=== PATIENT | female | born 1970 | race Caucasian/White ===

== ENCOUNTER 2020-08-22 10:29 | Day surgery (SDC) | payer MEDICAID ==
[~2020-08-22] VITALS: Ht 154.9 cm; Wt 116.4 kg
--- NOTE | ~2020-08-22 | OP ---
PATIENT NAME: DIPTI WILLSON MEDICAL RECORD: [id number] :66 [facility] DATE: SURGEON: PAWAN PETERSEN DO DATE OF OPERATION: 08/22/2020 PROCEDURE: EGD with balloon dilation and biopsies. INDICATIONS FOR PROCEDURE: Dysphagia, epigastric pain. SCOPE: Olympus video gastroscope. MEDICATIONS: Propofol 250 mg IV per anesthesia. ESTIMATED BLOOD LOSS: Minimal. COMPLICATIONS: None. FINDINGS: Informed consent was given. The patient was made comfortable with the above medication. After reaching an adequate level of sedation by slow IV push, the patient was placed on her left side. The endoscope was advanced under direct visualization through the mouth to the second portion of the duodenum. The esophagus appeared normal down to the GE junction. Cold forceps biopsies were taken from the mid esophagus to rule out the presence of eosinophils due to the patient's dysphagia. At the GE junction, there was evidence of LA class A reflux-induced esophagitis and some mild esophageal stenosis. A CRE dilating balloon was placed through the endoscope channel and the distal esophagus and GE junction was dilated to 20 mm maximum diameter successfully. The endoscope was then advanced beyond the GE junction into the stomach and retroflexed to view the cardia and fundus, which appeared normal. Throughout the stomach, there were patchy areas of erythema and granularity consistent with mild chronic gastritis changes. Cold forceps biopsies were taken from the antrum and incisura to submit for histopathology and to rule out the presence of H. pylori. The endoscope was advanced beyond the pylorus into the duodenum which appeared normal to the second portion. The endoscope was then withdrawn from the patient. The patient tolerated the procedure well and there were no complications. IMPRESSION: 1. LA class A reflux-induced esophagitis. 2. Mild esophageal stenosis at the GE junction, status post dilation to 20 mm. 3. Mild chronic gastritis changes. PLAN AND RECOMMENDATIONS: 1. Discharge home when recovery parameters are met. 2. Follow up biopsy specimen results. 3. GERD diet and reflux precautions. 4. Continue current medications. 5. Start omeprazole 40 mg daily times 60 days. 6. Follow up in GI clinic in 6-8 weeks. 7. If dysphagia continues, may need to consider manometry. 8. Notify GI clinic if symptoms worsen or fail to improve within the next few weeks. TRANSINT:[id number] Voice Confirmation ID: [id number] DOCUMENT ID: [id number] OPERATIVE REPORT [id number] DIPTI WILLSON NATHAN A DO CC: [id number] DICTATION DATE: 08/22/20 1305 PUBLIC RELATIONS COUNSELOR: 08/22/20 2243 [facility] 08/22/20 [place] [id number] [place] [id number]
[2020-08-22 10:48] LABS: HEMATOCRIT 39.9 % (36.0-48.0); HEMOGLOBIN 11.8 g/dL (12-16); MCH 23.7 pg (26.0-34.0); MCHC 29.6 g/dL (31.0-37.0); MCV 80.1 fL (80.0-100.0); MEAN PLATELET VOLUME 9.3 fL (7.4-10.4); RBC 4.98 10x6/uL (4.00-5.40); RDW 16.5 % (11.5-14.5); WBC 6.6 10x3/uL (4.8-10.8)
[2020-08-22] MEDS ORDERED: NEURONTIN800 MG PO (11:02)
[2020-08-22] MEDS ORDERED: ATIVAN2 MG PO (11:02)
[2020-08-22 11:03] LABS: HCG SERUM NEGATIVE (NEGATIVE)
[2020-08-22] MEDS ORDERED: HYDROCHLOROTH12.5 M1 PO (11:03)
[2020-08-22] MEDS ORDERED: AMITRIPTYLINE150 MG PO (11:04)
[2020-08-22] MEDS ORDERED: ALBUTEROL SULF8.5 GM INH (11:04)
[2020-08-22 11:15] VITALS: BP 138/87; Ht 154.9 cm; Wt 116.4 kg
--- NOTE | 2020-08-22 13:50 | NUR ---
DISCHARGED HOME VIA WHEELCHAIR TO PRIVATE VEHICLE WITH DAUGHTER
== END 2020-08-22 13:50 | disposition home or self-care (01) ==
LOC: D.OPS 10:29
PROVIDERS: Anesthesiology; ATTEND Internal Medicine Gastroenterology
DX: R13.10 Dysphagia, unspecified (principal); R10.13 Epigastric pain; K21.0 Gastro-esophageal reflux disease with esophagitis; K22.2 Esophageal obstruction; K29.50 Unspecified chronic gastritis without bleeding; K59.00 Constipation, unspecified; B19.20 Unspecified viral hepatitis C without hepatic coma